=== PATIENT | female | born 1970 | race Caucasian/White ===

== ENCOUNTER 2017-05-11 22:10 | Inpatient (IN) | payer MEDICAID ==
[2017-05-12 00:02] LABS: URINE MICROSCOPIC INDICATED? YES; URINE SOURCE RANDOM
[2017-05-12 00:03] LABS: % EOSINOPHILS 0.9 % (0.0-5.0); % LYMPHOCYTES 11.8 % (20.0-50.0); % MONOCYTES 3.2 % (2.0-10.0); % NEUTROPHILS 84.1 % (40.0-80.0); EOSINOPHILE ABSOLUTE 0.1 Th/cmm (0.1-0.4); HEMATOCRIT 39.7 % (41.0-60); HEMOGLOBIN 12.9 gm/dL (12-16); MEAN CORPUSCULAR HEMOGLOBIN 24.9 pg (27.0-31.0); MEAN CORPUSCULAR HGB CONC 32.4 pg (28.0-36.0); MEAN PLATELET VOLUME 8.4 fl; MONOCYTE ABSOLUTE 0.3 Th/cmm (0.3-1.0); NEUTROPHILE ABSOLUTE 6.8 Th/cmm (1.8-8.0); PLATELET COUNT 206 Th/cmm (150-400); RED BLOOD COUNT 5.16 Mil/cmm (3.80-5.10); WHITE BLOOD COUNT 8.2 Th/cmm (4.8-10.8)
--- NOTE | 2017-05-12 00:08 | ED Physician Chart ---
ED Chief Complaint/HPI - Patient Information Date Seen:: 05/12/17 Time Seen:: 00:07 Chief Complaint:: Headache History of Present Illness:: 46 yo female had headache, nausea, vomiting and new onset of seizure activities 3 hours prior to ER visit. She was noted to have loss of consciousness with foam in mouth and body shakiness. She bite her tongue. Patient was brought to ER by daughter in law. At ER, the patient had a grand mal seizure for about 15 seconds. Allergies:: Allergies Allergy/AdvReac Type Severity Reaction Status Date / Time No Known Allergies Allergy Verified 05/11/17 22:45 Vitals:: Vital Signs - 8 hr 05/11/17 22:20 Temp 97.6 F HR 82 RR 18 BP 124/86 O2 Sat % 98 ED Review of Systems - Review of Systems General/Constitutional: No fever Skin: No rash Head: Headache Eyes: No pain ENT: No nasal drainage Neck: No neck pain Cardio Vascular: No chest pain Pulmonary: No SOB GI: No nausea, Vomiting Musculoskeletal: Muscle pain ED Past Medical History - Past Medical History Past Medical History: No significant medical hx Social History: Non Smoker, No Alcohol, No Drug Use Surgical History: Cholecystectomy Family Medical History - Family Member Mother History Unknown: Yes ED Physical Exam - Physical Examination General/Constitutional: Awake, Alert Other Gen/Cons comments:: AO x 4 Head: Atraumatic Eyes: PERRL Skin: No skin lesions ENMT: Nasal exam nl Neck: No nuchal rigidity Respiratory: No Wheeze/Rhonchi/Rales Cardio Vascular: RRR, No murmur, gallop, rubs, NL S1 S2 GI: No tenderness/rebounding/guarding Extremities: normal strength in all extremities Neuro/Psych: No focal deficits ED Labs/Radiology/EKG Results - Lab Results Results: Laboratory Tests 05/11/17 23:21 POC Ur Test Negative - Radiology Results Results: CT head wo contrast: no acute intracranial abnormality ED Assessment - Assessment General Assessment: Seizures, new onset DM II Hyponatremia Hypokalemia Assessment/Comments:: CBC, CMP, CXR, EKG NS 1L IV bolus Ativan 2mg IV Phenytoin 1000mg IV Admit to [facility] for neurologic work up ED Septic Shock - . Is Septic Shock (SBP<90, OR Lactate>4 mmol\L) present?: No - <6hrs of presentation: Vital Signs: Vital Signs - 8 hr 05/11/17 22:20 Temp 97.6 F HR 82 RR 18 BP 124/86 O2 Sat % 98 ED Reassessment (Disposition) - Reassessment Reassessment Condition:: Improved - Patient Disposition Discharge/Transfer:: Acute Care w/in this hosp Admitting Medical Physician:: Dallas Collins
[2017-05-12 00:23] LABS: URINE BILIRUBIN NEGATIVE (NEGATIVE); URINE BLOOD TRACE (NEGATIVE); URINE GLUCOSE (UA) 100 mg/dL (NEGATIVE); URINE KETONE NEGATIVE (NEGATIVE); URINE LEUKOCYTE ESTERASE NEGATIVE (NEGATIVE); URINE NITRATE NEGATIVE (NEGATIVE); URINE PROTEIN NEGATIVE (NEGATIVE); URINE UROBILINOGEN 0.2 E.U./dL (0.2 - 1.0)
[2017-05-12 00:31] LABS: ALB/GLOB RATIO 1.5 (1.0-1.8); ALBUMIN 4.2 gm/dL (3.7-5.3); ALKALINE PHOSPHATASE 93 U/L (34-104); BILIRUBIN,TOTAL 0.5 mg/dL (0.3-1.0); BUN - UREA NITROGEN 11 mg/dL (7-25); CALCIUM SERUM 9.2 mg/dL (8.6-10.3); CARBON DIOXIDE 23.3 mEq/L (21.0-31.0); CHLORIDE 103 mEq/L (98-107); CREATININE - SERUM 0.6 mg/dL (0.6-1.2); GFR AFRICAN-AMERICAN > 60.0 ml/min (>90); GFR NON AFRICAN-AMERICAN > 60.0 ml/min; GLUCOSE 156 mg/dL (70-105); POTASSIUM SERUM 3.3 mEq/L (3.5-5.1); SGOT 31 U/L (13-39); SGPT/ALT 36 U/L (7-52); SODIUM SERUM 133 mEq/L (136-145)
[2017-05-12 00:39] LABS: URINE CLARITY HAZY (CLEAR); URINE COLOR YELLOW
[2017-05-12 00:40] LABS: URINE BACTERIA FEW /hpf (NONE SEEN); URINE EPITHELIAL CELLS OCCASIONAL /lpf (FEW)
[2017-05-12] MEDS ORDERED: Sodium Chloride 0.9% 1,000 ML IV ONE (00:58)
[2017-05-12] MEDS ORDERED: Phenytoin 1,000 MG in Sodium Chloride 0.9% 100 ML IV ONE (03:51)
[2017-05-12] MEDS ORDERED: Phenytoin 50 mg/mL 5 mL Vial IV ONE (04:39)
[2017-05-12] MEDS ORDERED: KCL 20mEq/100mL Premix 20 MEQ/100 ML PIGGYBACK IV SCH (07:00)
[2017-05-12 07:28] LABS: % EOSINOPHILS 0.8 % (0.0-5.0); % LYMPHOCYTES 16.9 % (20.0-50.0); % MONOCYTES 6.8 % (2.0-10.0); % NEUTROPHILS 75.5 % (40.0-80.0); EOSINOPHILE ABSOLUTE 0.1 Th/cmm (0.1-0.4); HEMOGLOBIN 12.8 gm/dL (12-16); LYMPHOCYTE ABSOLUTE 1.4 Th/cmm (1.5-3.0); MEAN CELL VOLUME 76.7 fl (81-100); MEAN CORPUSCULAR HEMOGLOBIN 25.2 pg (27.0-31.0); MEAN CORPUSCULAR HGB CONC 32.9 pg (28.0-36.0); MEAN PLATELET VOLUME 8.3 fl; MONOCYTE ABSOLUTE 0.6 Th/cmm (0.3-1.0); NEUTROPHILE ABSOLUTE 6.3 Th/cmm (1.8-8.0); PLATELET COUNT 207 Th/cmm (150-400); RED BLOOD COUNT 5.09 Mil/cmm (3.80-5.10); RED CELL DISTRIBUTION WIDTH 13.2 % (11.5-20.0); WHITE BLOOD COUNT 8.4 Th/cmm (4.8-10.8)
[2017-05-12 07:38] LABS: ALB/GLOB RATIO 1.5 (1.0-1.8); ALBUMIN 4.2 gm/dL (3.7-5.3); ALKALINE PHOSPHATASE 94 U/L (34-104); ANION GAP 7.7 (7.0-16.0); BILIRUBIN,TOTAL 0.5 mg/dL (0.3-1.0); BUN - UREA NITROGEN 9 mg/dL (7-25); CALCIUM SERUM 8.8 mg/dL (8.6-10.3); CARBON DIOXIDE 26.8 mEq/L (21.0-31.0); CHLORIDE 106 mEq/L (98-107); CREATININE - SERUM 0.5 mg/dL (0.6-1.2); GFR AFRICAN-AMERICAN > 60.0 ml/min (>90); GFR NON AFRICAN-AMERICAN > 60.0 ml/min; GLUCOSE 111 mg/dL (70-105); PHENYTOIN 14.4 ug/ml (10.0-20.0); POTASSIUM SERUM 3.5 mEq/L (3.5-5.1); SGOT 31 U/L (13-39); SGPT/ALT 36 U/L (7-52); SODIUM SERUM 137 mEq/L (136-145)
--- NOTE | 2017-05-12 09:22 | Diagnostic Imaging Report ---
Head CT without intravenous contrast Indication: Seizures Comparison: None Technique: Axial images were obtained from the vertex to the skull base without IV contrast. Coronal reconstructions were made. Total DLP: 610, [id number] FINDINGS: Images of the brain obtained without contrast demonstrate no acute hemorrhage. No mass lesions identified. The ventricles and basal cisterns are patent. The lópez-white matter differentiation is preserved. There is no mass effect or midline shift. No skull fractures identified. No soft tissue swelling. The paranasal sinuses are clear. IMPRESSION: No acute intracranial abnormality.
[2017-05-12] MEDS: Sodium Chloride 0.9% 1,000 ML IV SCH (10:31)
[2017-05-12] MEDS ORDERED: Pneumococcal Vaccine 0.5 mL Vial IM ONE (14:54)
[2017-05-12] MEDS: PHENYTOIN IV SCH ×2 (16:24→23:46)
[2017-05-12] MEDS: SODIUM CHLORIDE 0.9% IV SCH ×2 (16:24→23:46)
--- NOTE | 2017-05-12 23:26 | History & Physical ---
ADMIT DATE: 05/12/2017 CHIEF COMPLAINT: New onset seizure activity, headaches. HISTORY OF PRESENT ILLNESS: This is a 46-year-old female with no known medical problems per patient's account, who presented with acute onset of nausea, vomiting, headaches followed by 3 episodes of body shakes/seizure-like activity. She reports a small tongue bite, but denies any urinary or bowel incontinence. She denies any previous similar episodes. She had a recurrent witnessed seizure while in the ED lasting for about 15 seconds. It was described by ER staff as being consistent with a grand mal seizure. Pertinent findings at the ER include a sodium of 133, a potassium of 3.3, and a glucose level of 156. UA positive for glucose and rbc's 5-10. There was also a head CT scan done showing no acute intracranial abnormalities. The patient has been admitted to [facility] for further management and care. PAST MEDICAL HISTORY: As noted above. PAST SURGERIES: Cholecystectomy. FAMILY HISTORY: Noncontributory to this admission. SOCIAL HISTORY: Denies any tobacco, ETOH, or illicit drug usage. ALLERGIES: NKDA. OUTPATIENT MEDICATIONS: None listed. REVIEW OF SYSTEMS: CONSTITUTIONAL: No fever, chills. No recent weight loss. CARDIOVASCULAR: No chest pain, palpitations. PULMONARY: Denies any cough or phlegm production. GASTROINTESTINAL: Please refer to the HPI. Denies any abdominal pain, any constipation or diarrhea. GENITOURINARY: Denies any bladder habit changes. NEUROLOGIC: Please refer to the HPI. PHYSICAL EXAMINATION: VITAL SIGNS: Temperature 98.1, pulse 80, respirations 16-18, blood pressure 117/73, and satting 98-100% on room air. GENERAL: She is well-developed and well-nourished female, awake, alert and oriented x 3. HEAD AND NECK: Normocephalic, atraumatic. Pupils are reactive to light. Extraocular movements are intact. Oropharynx appears to be intact. There are no obvious tongue lacerations. CARDIAC: Regular rate and rhythm without any murmurs, gallops, or rubs. S1 and S2 are present. LUNGS: Clear to auscultation bilaterally. ABDOMEN: Soft, supple, nontender, nondistended, normoactive bowel sounds. LOWER EXTREMITIES: No pedal edema. NEUROLOGIC: Grossly intact, nonfocal. LABORATORY DATA: On admission, white count 8.2, H and H 12/39 with a MCV of 77 and a platelet count of 206. Sodium 133, potassium 3.3, glucose 156; otherwise, Chem-7 was within normal limits. LFTs were within normal limits. UA shows 5-10 rbc's present and positive for glucose. test was negative. Dilantin level 4.4. DIAGNOSTICS: Please refer to the HPI. ASSESSMENT: 1. Seizure activity - new onset associated with headaches. Workup so far (CT) negative. The differential would also include migraines. 2. Likely type 2 diabetes given lab findings. 3. Hyponatremia. 4. Hypokalemia. 5. Hematuria. 6. Mild anemia. PLAN: She has been admitted to [facility] for further management and care. The patient was given 2 mg of Ativan, was given Dilantin 1000 mg via IV and that was given with 1 liter of NS. She will be kept on Dilantin at 100 mg q. 8 hours and I will ask for a ST eval. The patient will be monitored with labs and we will ask for a hemoglobin A1c, a lipid panel, and a TSH. The patient also will be given IV fluids and the patient also has been repleted with potassium supplements. Neuro eval will be asked for further management and care. [facility]# [id number]
[2017-05-13 05:48] LABS: % BASOPHILS 0.4 % (0.0-2.0); % EOSINOPHILS 2.7 % (0.0-5.0); % MONOCYTES 9.1 % (2.0-10.0); % NEUTROPHILS 55.8 % (40.0-80.0); EOSINOPHILE ABSOLUTE 0.2 Th/cmm (0.1-0.4); HEMATOCRIT 37.5 % (41.0-60); HEMOGLOBIN 12.4 gm/dL (12-16); MEAN CELL VOLUME 76.4 fl (81-100); MEAN CORPUSCULAR HEMOGLOBIN 25.3 pg (27.0-31.0); MEAN CORPUSCULAR HGB CONC 33.1 pg (28.0-36.0); MEAN PLATELET VOLUME 8.2 fl; MONOCYTE ABSOLUTE 0.6 Th/cmm (0.3-1.0); NEUTROPHILE ABSOLUTE 3.5 Th/cmm (1.8-8.0); PLATELET COUNT 182 Th/cmm (150-400); RED BLOOD COUNT 4.91 Mil/cmm (3.80-5.10)
[2017-05-13 05:51] LABS: WHITE BLOOD COUNT 6.3 Th/cmm (4.8-10.8)
[2017-05-13 06:25] LABS: ANION GAP 8.6 (7.0-16.0); BUN - UREA NITROGEN 10 mg/dL (7-25); CALCIUM SERUM 8.7 mg/dL (8.6-10.3); CARBON DIOXIDE 25.6 mEq/L (21.0-31.0); CHLORIDE 108 mEq/L (98-107); CHOLESTEROL 182 mg/dL (<200); CREATININE - SERUM 0.6 mg/dL (0.6-1.2); GFR AFRICAN-AMERICAN > 60.0 ml/min (>90); GFR NON AFRICAN-AMERICAN > 60.0 ml/min; GLUCOSE 92 mg/dL (70-105); HDL -HIGH DENSITY LIPOPROTEIN 66 mg/dL (23-92); MAGNESIUM 2.2 mg/dL (1.9-2.7); POTASSIUM SERUM 3.2 mEq/L (3.5-5.1); SODIUM SERUM 139 mEq/L (136-145); TRIGLYCERIDES 66 mg/dL (<150)
[2017-05-13] MEDS: PHENYTOIN IV SCH ×2 (06:55→16:30)
[2017-05-13] MEDS: SODIUM CHLORIDE 0.9% IV SCH ×2 (06:55→16:30)
--- NOTE | 2017-05-13 16:47 | Discharge Summary ---
DATE OF DISCHARGE: 05/13/2017 ADMISSION DIAGNOSES: 1. New onset seizure activity. 2. Hyponatremia. 3. Hypokalemia. 4. Mild hematuria. 5. Mild anemia. 6. Hyperglycemia and glucosuria, rule out type 2 diabetes. DISCHARGE DIAGNOSES: 1. New onset seizure activity, stable. 2. Multiple supratentorial white matter punctate foci per MRI (without contrast ). Negative results on MRI with IV contrast R/O demyelinating disease-close f/u with neuro as outpt. 3. Hyponatremia, resolved. 4. Hypokalemia, repleted. 5. Mild hematuria. 6. Mild anemia, stable. 7. Hyperglycemia and glucosuria. 8. diabetes type 2-started on 1800 ADA. Dietary recs made. PROCEDURES: There was a head CT done in the ER with negative results. MRI of brain without contrast-multiple punctate foci on supratentorial white matter. MRI of brain with contrast-essentially negative results. Lumbar puncture-csf: color-clear, rbc-10, wbc-0, gluc-57, protein-35. Serum immunofixation was within normal limits-1080. CONSULTANTS: Dr. Dias-neurology DISCHARGE MEDICATIONS: Dilantin 100 mg 3 times a day, iron sulfate 325 b.i.d., Tylenol 500 mg q. 6h. p.r.n. for pain and fever, prednisone taper. BRIEF HOSPITAL COURSE: A 46-year-old female with no medical history who presented to the ED with history of new onset seizure activity. She apparently had 3 small seizures at home, which were witnessed by family members, soon followed by headaches and mild nausea and vomiting. She was brought into the ED where she had recurrent witnessed seizure episode lasting for 15 seconds. She underwent the above-mentioned CT scan of head and was admitted after given a bolus of Dilantin 1 gram. She was also given some IV fluids and was admitted to telemetry. She has remained stable since being admitted with no further seizure activity. She underwent the above mentioned procedures without any complications. patient was seen and examined by neurology as well. She has been able to eat well and denies any major headaches and as well as any other symptomatology as well. DISPOSITION: The patient was discharged home to self-care. I instructed her to follow up with her primary care doctor and to get a referral for Neurology outpatient services and followup. Also instructed her to continue 1800 ADA. [facility]# [id number] MTDD
[2017-05-13 21:57] LABS: A1C % 6.8 % (4.0-6.0)
[2017-05-14 06:11] LABS: BUN - UREA NITROGEN 11 mg/dL (7-25); CALCIUM SERUM 8.9 mg/dL (8.6-10.3); CARBON DIOXIDE 25.3 mEq/L (21.0-31.0); CHLORIDE 107 mEq/L (98-107); CREATININE - SERUM 0.5 mg/dL (0.6-1.2); GFR AFRICAN-AMERICAN > 60.0 ml/min (>90); GFR NON AFRICAN-AMERICAN > 60.0 ml/min; GLUCOSE 91 mg/dL (70-105); POTASSIUM SERUM 3.3 mEq/L (3.5-5.1); SODIUM SERUM 138 mEq/L (136-145)
[2017-05-14] MEDS ORDERED: Potassium Chloride 20 mEq ER Tab PO ONE (09:23)
--- NOTE | 2017-05-14 12:39 | Diagnostic Imaging Report ---
MRI of the brain without intravenous contrast HISTORY: Seizure Multiple MRI sequences were obtained in the axial, coronal, and sagittal planes. There is a normal ventricular system size. There are multiple punctate hyperintense foci scattered within the supratentorial white matter regions. No mass effect. In view of the patient's age, a demyelinating process (multiple sclerosis) cannot be definitely excluded. Clinical correlation is needed. The cerebellum appears normal. No focal lesions are seen. The brainstem is normal. Seventh/eighth nerve complexes are seen bilaterally and appear normal. No extra-axial masses or abnormal fluid collections. No abnormalities are seen in the region of the sella turcica/pituitary gland. Normal aeration of the paranasal sinuses. IMPRESSION: 1. Multiple punctate foci within the supratentorial white matter regions. In view of the patient's age, a demyelinating process (multiple sclerosis) cannot be deftly excluded. A vascular etiology could mimic the appearance.
[2017-05-14] MEDS: Ferrous Sulfate 325 MG TAB PO SCH ×2 (15:07→17:59)
--- NOTE | 2017-05-14 20:45 | Consultation ---
DATE OF CONSULTATION: 05/13/2017 HISTORY OF PRESENT ILLNESS: The patient is 46-year-old female who had an episode where she had complained of some nausea and vomiting. Then she had body shakes. She bit her tongue. The patient started on Dilantin. No repeat episodes. No previous history of seizure. The patient complained of headaches, but the headaches are better now. PAST MEDICAL HISTORY: Cholecystectomy. No other major medical problems. PHYSICAL EXAMINATION: VITAL SIGNS: Temperature 98.2, blood pressure 130/70, pulse 74. NECK: Supple. No neck bruits. HEART: Sounds S1, S2. LUNGS: Clear. NEUROLOGIC: The patient is awake. She speaks [place], family by the bedside. She knew what day, what month, what year. CRANIAL: Pupils react to light. Full eye movement, no nystagmus. No facial weakness. MOTOR: She will lift both arms up. She will lift both legs up. Reflexes are about 1+. Gait is normal. INVESTIGATIONS: CT scan of head normal. IMPRESSION: 1. Seizure. 2. Question of diabetes. 3. Headaches, better. 4. Possible migraine. At this time, MRI brain. Continue Dilantin. The patient does not drive, does not have a license. JOB# [id number]
[2017-05-14] MEDS: Sodium Chloride 0.9% 1,000 ML IV SCH (21:56)
[2017-05-15 06:01] LABS: ANION GAP 8.9 (7.0-16.0); BUN - UREA NITROGEN 14 mg/dL (7-25); CALCIUM SERUM 9.6 mg/dL (8.6-10.3); CARBON DIOXIDE 25.8 mEq/L (21.0-31.0); CHLORIDE 105 mEq/L (98-107); CREATININE - SERUM 0.6 mg/dL (0.6-1.2); GFR AFRICAN-AMERICAN > 60.0 ml/min (>90); GFR NON AFRICAN-AMERICAN > 60.0 ml/min; GLUCOSE 97 mg/dL (70-105); POTASSIUM SERUM 3.7 mEq/L (3.5-5.1); SODIUM SERUM 136 mEq/L (136-145)
[2017-05-15 09:22] LABS: INR 0.95 (0.5-1.4); PROTHROMBIN TIME (TEST) 9.9 SECONDS (9.5-11.5)
[2017-05-15] MEDS: Ferrous Sulfate 325 MG TAB PO SCH ×2 (09:38→18:19)
--- NOTE | 2017-05-15 12:46 | Diagnostic Imaging Report ---
Exam: MRI examination of brain HISTORY: Seizure. Findings: Utilizing multiple techniques examination was obtained was performed. The study demonstrates normal signal intensity throughout the brain parenchyma bilaterally. The ventricular system is intact. There is no evidence for hemorrhage midline shift or edema. The orbits and optic globes are normal. Intraconal content is intact. The optic chiasm is normal. The seventh eighth nerve complexes are normal. The cerebellum is intact. The paranasal sinuses are well aerated. IMPRESSION: Essentially unremarkable examination of the brain.
[2017-05-15] MEDS: Sodium Chloride 0.9% 1,000 ML IV SCH (15:47)
[2017-05-15 16:31] LABS: CSF COLOR COLORLESS
[2017-05-15 16:32] LABS: CSF APPEARANCE CLEAR; CSF RBC 10 /cumm (0-5); CSF WBC 0 /cumm (0-5)
--- NOTE | 2017-05-15 21:59 | Progress Notes ---
DATE: 05/15/2017 SUBJECTIVE/REVIEW OF SYSTEMS: The patient lying in bed, awake, no more seizures. No numbness or tingling. PHYSICAL EXAMINATION: VITAL SIGNS: Temperature 98.2, blood pressure 138/76, pulse is around 77. NECK: Supple. No bruits. CARDIOVASCULAR: Heart sounds, normal. The patient is awake, alert. Speech is normal. No weakness one side or the other. INVESTIGATION: MRI with contrast unremarkable. No enhancement. Spinal tap protein normal. WBC normal IMPRESSION: 1. Seizure. 2. MRI question of multiple sclerosis. No definite active disease noted on the MRI contrast. 3. The patient with history of migraine. At this time, the patient is okay to plan discharge. The patient on medication. Continue with that. The patient is to follow up with the primary doctor. I also told the family to get reports of the spinal tap. JOB# [id number]
[2017-05-16] MEDS: Ferrous Sulfate 325 MG TAB PO SCH (09:02)
== END 2017-05-16 11:11 | disposition home or self-care (01) | DRG 53 ==
LOC: ER 22:10 → TELE 05-12 08:06 → MSI 05-14 23:09
PROVIDERS: ADMIT Internal Medicine; ATTEND Internal Medicine
PROC: 009U3ZX Drainage of Spinal Canal, Percutaneous Approach, Diagnostic (ICD-10-PCS; principal; 2017-05-15)
DX: G40.409 Other generalized epilepsy and epileptic syndromes, not intractable, without status epilepticus (principal); E11.65 Type 2 diabetes mellitus with hyperglycemia; E87.1 Hypo-osmolality and hyponatremia; E87.6 Hypokalemia; D64.9 Anemia, unspecified; G43.909 Migraine, unspecified, not intractable, without status migrainosus; R31.9 Hematuria, unspecified; Z90.49 Acquired absence of other specified parts of digestive tract
CPT/HCPCS: 36415-UA; 62270-TC; 70450-TC; 80048-TC; 80053-TC; 80061-TC; 80185-TC; 81001-TC; 81003-TC; 81025-TC; 82784-90; 82945-TC; 83036-90; 83735-TC; 83916-90; 84157-TC; 84443-TC; 85025-TC; 85610-TC; 85730-TC; 87070-90; 89051-TC; 96375; J1165; J2060; J3480; J7030; Z7610; Z7610-TC